=== PATIENT | female | born 1935 | race Caucasian/White ===

== ENCOUNTER 2017-12-11 08:38 | Inpatient (IN) | payer OTHER, BC ==
[2017-11-21 15:08] VITALS: BMI 28.0
--- NOTE | 2017-11-21 15:56 | PAT Medication Instructions ---
Service Date Nov 21, 2017. Current Home Medication List Aspirin (Aspirin Ec), 81 MG PO QAM Clorazepate Dipotassium (Tranxene-T), 7.5 MG PO TID Ibuprofen (Advil), 800 MG PO TID Levothyroxine Sodium (Levothyroxine Sodium), 1 TAB PO QAM Meclizine HCl (Meclizine HCl), 2 TAB PO TID PRN for VERTIGO Medication Instructions For Your Scheduled Surgery - Hold the following medications 5 days prior to surgery: Ibuprofen (Advil), 800 MG PO TID - Take the following medications the morning of surgery with a sip of water: Aspirin (Aspirin Ec), 81 MG PO QAM Levothyroxine Sodium (Levothyroxine Sodium), 1 TAB PO QAM Meclizine HCl (Meclizine HCl), 2 TAB PO TID PRN for VERTIGO (if needed) Clorazepate Dipotassium (Tranxene-T), 7.5 MG PO TID - Take the following medications as scheduled the night before surgery: Meclizine HCl (Meclizine HCl), 2 TAB PO TID PRN for VERTIGO (if needed) Clorazepate Dipotassium (Tranxene-T), 7.5 MG PO TID If you have any questions please call us at [phone] or [phone] or [phone]
[2017-11-21 16:34] LABS: BASO % 0.3 %; BASO ABS # 0.02 K/uL (0-0.2); EOS % 4.6 %; EOS ABS # 0.35 K/uL (0-0.5); HEMOGLOBIN 12.3 g/dL (12.0-16.0); IG# 0.02 K/uL (0.00-0.02); LYMPH % 21.5 %; LYMPH ABS # 1.63 K/uL (1.2-3.4); MEAN CELL VOLUME 95.1 fL (80-100); MEAN CORPUSCULAR HEMOGLOBIN 31.6 pg (25-34); MEAN CORPUSCULAR HGB CONC 33.2 g/dl (32-36); MEAN PLATELET VOLUME 9.2 fL (7.4-10.4); MONO % 7.9 %; NEUT % 65.4 %; NEUT ABS # 4.97 K/uL (1.4-6.5); PLATELET COUNT 241 K/uL (130-400); RED CELL DISTRIBUTION WIDTH CV 13.5 % (11.5-14.5); RED CELL DISTRIBUTION WIDTH SD 46.9 fL (36.4-46.3); WHITE BLOOD COUNT 7.59 K/uL (4.8-10.8)
[2017-11-21 17:08] LABS: CALCIUM 8.7 mg/dl (8.5-10.1); CREATININE 1.04 mg/dl (0.60-1.20); POTASSIUM 4.9 mmol/L (3.5-5.1)
--- NOTE | 2017-12-01 11:38 | HISTORY & PHYSICAL EXAMINATION ---
DATE OF ADMISSION: 12/11/2017 CHIEF COMPLAINT: Left hip pain. HISTORY OF PRESENT ILLNESS: Nalini is an 82-year-old female with a 1 year history of left hip pain. Patient rates her pain an 8/10. She has pain with her daily activities. She has limited standing and walking tolerance. Pain is worse with weightbearing. Patient has had injection. She cannot do a home exercise program due to her pain. She is currently in a walker and a wheelchair when she is out and about. She takes the Advil with little relief. She has failed conservative treatment and is scheduled for left hip replacement. PAST SURGICAL HISTORY: Brain shunt 2018, left TKA, hysterectomy, lumbar laminectomy and Anyi fundoplication. SOCIAL HISTORY: She denies alcohol or tobacco use. She lives in a single keith apartment at [facility]. She is and retired. FAMILY HISTORY: Negative for DVT. MEDICATIONS: Ibuprofen 800 mg t.i.d., alprazolam 0.25 mg t.i.d., aspirin 81 mg, Bactrim-DS, Cymbalta 20 mg, duloxetine 60 mg, meclizine 25 mg, Nexium 40 mg, pravastatin 40 mg, Synthroid 88 mcg, vitamin D3 2000 units. ALLERGIES: CODEINE. REVIEW OF SYSTEMS: See HPI. Ten other systems reviewed, all negative. PHYSICAL EXAMINATION: VITAL SIGNS: Height 5 feet 2 inches, weight 152 pounds, BMI 28. GENERAL: This is a well-developed, well-nourished female who is alert and oriented x3. Mood and affect are appropriate. HEENT: Normocephalic, atraumatic. Mucous membranes are moist and intact. NECK: Supple without lymphadenopathy. HEART: Regular rate and rhythm without murmurs, rubs or gallops. LUNGS: Clear to auscultation without wheezes or rhonchi. ABDOMEN: Soft and nontender. Bowel sounds are equal and active. EXTREMITIES: No ecchymosis, redness or warmth. She walks with an antalgic gait. She has a mild skin tear in the left groin fold. Range of motion is decreased and reproduces pain in the groin. She is neurovascularly intact with +5/5 strength. X-RAY EXAMINATION: AP and lateral views show joint space narrowing and osteophyte formation. IMPRESSION: Degenerative joint disease, left hip. PLAN: Patient will be admitted for a left total hip arthroplasty. We will plan on aspirin for DVT prophylaxis. Patient wants to go to [facility] upon discharge.
[2017-12-11] VITALS (7 sets, daily range): BP systolic 103–151; BP diastolic 67–86; PULSE 51–64; TEMP 35.4–36.5; O2SAT 94–100; Ht 160 cm; Wt 67.0 kg
[~2017-12-11] VITALS: Ht 160 cm; Wt 67.0 kg
--- NOTE | 2017-12-11 07:12 | History & Physical Bridge Note ---
H&P Re-Evaluation Bridge Note: I have examined the patient, reviewed the History & Physical and in the interval since the performance of the History & Physical I have noted the following changes of clinical significance: No changes noted
[~2017-12-11 08:38] MED LIST: ACETAMINOPHEN 500 MG TAB PO SCH; ASPI81TA28 PO; CEFAZOLIN 1000MG IV PUSH 7.5 ML IV SCH; CLOR7.5T14 PO; CeleBREX 200 MG CAP PO SCH; DEXAMETHASONE 4 MG TAB PO SCH; FAMOTIDINE 20 MG TAB PO SCH; GABAPENTIN 300 MG CAP PO SCH; IBUP-1050 PO; LACTATED RINGER'S 1000ML 1,000 ML IV SCH; LACTATED RINGER'S 1000ML 500 ML IV SCH; LEVO88TA3 PO; MECL1TAB40 PO; METOCLOPRAMIDE HCL 10 MG TAB PO SCH; ROPIVACAINE 5MG/ML 30 ML 150 MG, BUPIVACAINE 0.5% MPF INJ 30 ML, EpINEphrine HCL INJ 0.... INFIL SCH; ROPIVACAINE 5MG/ML 30 ML 150 MG, BUPIVACAINE 0.5% MPF INJ 30 ML, KETOROLAC TROMETHAMINE... INFIL SCH
[2017-12-11] MEDS ORDERED: BUPIVACAINE 0.5 % 5 MG/1 ML PF 10ML VIAL ONE (08:39)
[2017-12-11] MEDS ORDERED: FENTANYL CITRATE INJ 50 MCG/1 ML 2 ML VIAL ONE (10:03)
[2017-12-11] MEDS ORDERED: MIDAZOLAM HCL 1 MG/ML 2ML VIAL ONE ×2 (10:03)
[2017-12-11] MEDS ORDERED: LIDOCAINE HCL 2% 2 ML VIAL (20MG/ML) ONE (10:06)
[2017-12-11] MEDS ORDERED: PROPOFOL IV EMULSION 10 MG/ML 20 ML VIAL ONE (10:06)
[2017-12-11] MEDS ORDERED: ORTHO JOINT ANESTHETIC ONE (10:43)
[2017-12-11] MEDS ORDERED: POVIDONE-IODINE OP SOLN 30 ML BTL ONE (10:43)
[2017-12-11] MEDS ORDERED: BACITRACIN 50000 UNIT VIAL ONE (10:43)
[2017-12-11] MEDS ORDERED: LABETALOL HCL IV 5 MG/ML 20ML IV PRN (11:15)
[2017-12-11] MEDS ORDERED: ONDANSETRON INJ 2 MG/ML 2 ML VIAL IV PRN ×2 (11:15→12:45)
[2017-12-11] MEDS ORDERED: FENTANYL CITRATE INJ 50 MCG/1 ML 2 ML VIAL IV PRN (11:15)
[2017-12-11] MEDS ORDERED: PHENYLEPHRINE 100MCG/ML 5ML SYR IV PRN (11:15)
[2017-12-11] MEDS ORDERED: ATROPINE SULFATE 0.1 MG/ML 5ML SYR IV PRN (11:15)
[2017-12-11] MEDS ORDERED: EpHEDrine SULFATE INJ 50 MG/ML AMP IV PRN (11:15)
[2017-12-11] MEDS ORDERED: NALOXONE HCL 0.4 MG/1 ML VIAL/CARP IV PRN (11:15)
[2017-12-11] MEDS ORDERED: FLUMAZENIL 0.1 MG/1 ML 10 ML VIAL IV PRN (11:15)
[2017-12-11] MEDS ORDERED: MEPERIDINE HCL 25 MG/ML CARP IV PRN (11:15)
--- NOTE | 2017-12-11 12:03 | [facility] Post Operative Brief Note ---
Immediate Operative Summary Operative Date December 11, 2017. Pre-Operative Diagnosis DEGENERATIVE JOINT DISEASE Post-Operative Diagnosis SAME PREOP Procedure(s) Performed [facility] Surgeon DR. Armani CHINO Gambling Cashier Surgeon(s) Nayely CHING PAC Estimated Blood Loss 100cc Findings Consistent with Post-Op Diagnosis Specimens femoral head Anesthesia Type MAC Spinal Regional Complication(s) none Disposition Accompanied Pt To Recover: no Disposition: Recovery Room / PACU Overlapping Procedure I was present for: the critical portions of procedure. I was immediately available: during the entire case
[2017-12-11] MEDS ORDERED: PHENYLEPHRINE HCL INJ 10 MG/ML VIAL ONE (12:21)
[2017-12-11] MEDS ORDERED: PHENYLEPHRINE 100MCG/ML 5ML SYR ONE (12:21)
[2017-12-11] MEDS ORDERED: ZOLPIDEM TARTRATE 5 MG TAB PO PRN (12:45)
[2017-12-11] MEDS ORDERED: TRAMADOL HCL 50 MG TAB PO PRN (12:45)
[2017-12-11] MEDS ORDERED: METOCLOPRAMIDE HCL INJ 5 MG/ML 2 ML VIAL IV PRN (12:45)
[2017-12-11] MEDS ORDERED: MAGNESIUM HYDROXIDE SUSP 30 ML UDC PO PRN (12:45)
[2017-12-11] MEDS ORDERED: ALUMINUM/MAGNESIUM/SIMETH (MAALOX MAX) 30 ML UDC PO PRN (12:45)
--- NOTE | 2017-12-11 13:01 | OPERATIVE REPORT ---
DATE OF OPERATION: 12/11/2017 PREOPERATIVE DIAGNOSIS: Osteoarthritis, left hip. POSTOPERATIVE DIAGNOSIS: Osteoarthritis, left hip. PROCEDURE: Left Chris total hip arthroplasty. SURGEON: Sylvain Jiang MD ENGINEERING MANAGER: Sandor Gonzalez PA-C. ANESTHESIA: Spinal. COMPLICATIONS: None. IMPLANTS USED: Acetabular reamer used 54, acetabular shell 54, femoral stem #4, and femoral head -5 x 36 mm ceramic. DISPOSITION: Recovery room, stable. OPERATION AND FINDINGS: DESCRIPTION OF PROCEDURE: Following induction of adequate spinal anesthesia, the patient was placed in right lateral decubitus position and left Kadie-Langenbeck incision was made. Subcutaneous tissue was sharply dissected. Electrocautery used for hemostasis. The fascia was incised throughout the length of the wound and a jessica scissor placed beneath the short external rotators. The pyriformis was tagged with #1 Vicryl. The short external rotators were divided from the posterior aspect of the femur using electrocautery. These were swept posteriorly. A T-capsulotomy incision was made and the hip was dislocated using a combination of flexion, adduction, and internal rotation. Exposure of the femoral neck with old-style Hohmann and a blunt Hohmann was carried out and a femoral rasp was utilized as a guide for making the appropriate level femoral neck cut. This bone fragment was removed and reserved on the back table. Next, attention was turned to the acetabulum where bone hook was used to retract the femur while the offset retractors were placed anterior and posteriorly. A double-angled Hohmann was placed in superior and anterior position exposing the acetabulum nicely. Acetabular labrum as well as posterior capsule elements were removed using a long knife and a long pickup. Fovea centralis was cleared of all soft tissue. Sequential reamings were carried up to a 54 and decision was made to proceed with impaction of a 54 trabecular metal cup. This was impacted and held using a single 35 mm bone screw. The acetabular liner was placed with 15 of elevated posterior wall in the superior and posterior position. Next, attention was turned to the femoral portion of the case where a Bovie and pickup was used to further clear short external rotators from their insertion on the femur. Box osteotome was used to gain access to the femoral canal and the T-handled rasp and a rattail rasp were used to further open and lateral the canal. Sequentially raspings were carried up to a 4 which gave good fit and fill of the proximal femur. A trial reduction was carried out and a 132 degree femoral neck component was chosen as the size to be used. A 5 x 36 mm femoral head was impacted into position, +0 head was utilized. The trial reduction was stable in all degrees of rotation with no [id number] impingement. The hip was dislocated. The trial components were removed and the final femoral stem, neck, and femoral head combination were assembled on the back table and impacted into position. Hip was relocated. Range of motion checked once again successful and the wound was irrigated. The pyriformis repaired to the greater trochanter using #1 Vicryl [id number] suture. A Hemovac drain was placed and the fascia was closed using #1 Vicryl, subcutaneous tissue was closed using 0 Dexon, and skin was closed with jacinta. Sterile dressing of Adaptic, 4 x 4's, ABDs, and foam tape was applied. The patient tolerated the procedure well. Due to the complex nature of the procedure, the entire surgery was performed with the operational assistance of Sandor Gonzalez PA-C. The power plant assistant, under direct supervision, was involved in the actual performance of all aspects of the surgical procedure including hemostasis, tissue retraction and incision, instrument management, patient positioning, and wound closure. I attest to the content of the Intraoperative Record and any orders documented therein. Any exception s are noted below.
--- NOTE | 2017-12-11 13:21 | DIAGNOSTIC IMAGING REPORT ---
AP PELVIS AND LEFT HIP 2 VIEWS CLINICAL HISTORY: Postop left hip arthroplasty COMPARISON STUDY: No previous studies for comparison. FINDINGS: There are postsurgical changes of a total left hip arthroplasty. Acetabular femoral components appear well seated. There is no dislocation. There are overlying surgical drains. There is air in soft tissues consistent with the history of recent surgery. A catheter projects over the pelvis. IMPRESSION: Postsurgical changes of a total left hip arthroplasty. Electronically signed by: Logan Mckenzie M.D. 12/11/2017 1:19 PM Dictated Date/Time: 12/11/2017 1:19 PM
[2017-12-11] MEDS: ACETAMINOPHEN 500 MG TAB PO SCH ×2 (16:40→23:32)
[2017-12-11] MEDS: D5W AND 1/2NSS + 20MEQ KCL 1,000 ML IV SCH (16:40)
--- NOTE | 2017-12-11 16:53 | Anesthesiology Progress Note ---
Anesthesia Post Op Note Date & Time December 11, 2017 at 16:52 Vital Signs Pain Intensity: 0.0 Vital Signs Past 12 Hours Date Time Temp Pulse Resp B/P (MAP) Pulse Ox O2 Delivery O2 Flow Rate FiO2 12/11/17 16:44 35.8 55 18 133/78 (96) 99 Nasal Cannula 2.0 12/11/17 16:15 36.3 59 18 103/67 (79) 98 Nasal Cannula 2.0 12/11/17 15:45 36.5 56 16 114/72 (86) 98 Oxymask 2.0 12/11/17 15:45 98 Oxymask 2.0 12/11/17 15:45 98 Oxymask 2.0 12/11/17 15:30 56 16 129/63 100 Oxymask 2 12/11/17 15:20 53 16 110/64 100 Oxymask 2 12/11/17 15:10 36.0 56 16 113/66 100 Oxymask 2 12/11/17 15:00 54 16 145/62 100 Oxymask 2 12/11/17 14:50 61 16 138/63 100 Oxymask 2 12/11/17 14:40 60 16 123/65 95 Room Air 12/11/17 14:30 58 16 107/61 99 Room Air 12/11/17 14:20 60 16 113/57 100 Oxymask 3 12/11/17 14:10 60 16 134/74 100 Oxymask 3 12/11/17 14:00 62 16 145/70 100 Oxymask 3 12/11/17 13:50 56 16 108/56 100 Oxymask 3 12/11/17 13:40 59 16 115/69 100 Oxymask 3 12/11/17 13:30 62 16 121/64 100 Oxymask 3 12/11/17 13:20 55 17 122/61 98 Oxymask 3 12/11/17 13:10 57 16 122/61 98 Oxymask 3 12/11/17 13:00 58 16 107/55 100 Oxymask 3 12/11/17 12:50 58 16 113/54 100 Oxymask 3 12/11/17 12:40 57 16 104/50 100 Oxymask 5 12/11/17 12:31 36.0 58 12 103/48 98 Oxymask 5 12/11/17 09:16 36.4 62 18 151/86 94 Room Air Notes Mental Status: alert / awake / arousable, participated in evaluation Pt Amnestic to Procedure: Yes Nausea / Vomiting: adequately controlled Pain: adequately controlled Airway Patency, RR, SpO2: stable & adequate BP & HR: stable & adequate Hydration State: stable & adequate Neuraxial Anesthesia: was administered, sensory block is resolving Anesthetic Complications: no major complications apparent Patient was somnolent postoperatively and required longer than usual PACU stay. She was arousable and able to move b/l lower and upper extremities (lower extremities after SAB resolved). She was oriented to person and place and she followed commands. ok for transfer to the floor.
[2017-12-11] MEDS: FERROUS GLUCONATE 324 MG TAB PO SCH (17:31)
[2017-12-11] MEDS: KETOROLAC TROMETHAMINE 15 MG/ML VIAL IV. SCH ×2 (17:32→23:34)
[2017-12-11] MEDS: CEFAZOLIN IV 1,000 MG in SYRINGE 0 ML IV SCH (20:22)
[2017-12-11] MEDS: DOCUSATE SODIUM 100 MG CAP PO SCH (20:40)
[2017-12-11] MEDS: CLORAZEPATE DIPOTASSIUM 3.75 MG TAB PO SCH (20:40)
[2017-12-11] MEDS: ASPIRIN 81 MG ECTAB PO SCH (20:41)
[2017-12-12] MEDS: D5W AND 1/2NSS + 20MEQ KCL 1,000 ML IV SCH (02:28)
[2017-12-12 03:18] VITALS: BP 108/64; PULSE 54; TEMP 36.3; O2SAT 95
[2017-12-12] MEDS: CEFAZOLIN IV 1,000 MG in SYRINGE 0 ML IV SCH (04:27)
[2017-12-12] MEDS: LEVOTHYROXINE 88 MCG TAB PO SCH (06:05)
[2017-12-12] MEDS: KETOROLAC TROMETHAMINE 15 MG/ML VIAL IV. SCH ×2 (06:07→12:26)
[2017-12-12 06:28] LABS: BASO % 0.1 %; BASO ABS # 0.01 K/uL (0-0.2); HEMATOCRIT 30.7 % (37-47); HEMOGLOBIN 10.3 g/dL (12.0-16.0); IG# 0.04 K/uL (0.00-0.02); LYMPH % 6.2 %; LYMPH ABS # 0.87 K/uL (1.2-3.4); MEAN CELL VOLUME 91.9 fL (80-100); MEAN CORPUSCULAR HEMOGLOBIN 30.8 pg (25-34); MEAN CORPUSCULAR HGB CONC 33.6 g/dl (32-36); MEAN PLATELET VOLUME 9.5 fL (7.4-10.4); MONO % 9.7 %; MONO ABS # 1.35 K/uL (0.11-0.59); NEUT % 83.7 %; NEUT ABS # 11.71 K/uL (1.4-6.5); PLATELET COUNT 237 K/uL (130-400); RED CELL DISTRIBUTION WIDTH SD 43.7 fL (36.4-46.3); WHITE BLOOD COUNT 13.98 K/uL (4.8-10.8)
[2017-12-12 07:09] LABS: CALCIUM 8.2 mg/dl (8.5-10.1); CREATININE 1.03 mg/dl (0.60-1.20); POTASSIUM 4.4 mmol/L (3.5-5.1)
[2017-12-12] MEDS ORDERED: DEXAMETHASONE INJ 10 MG in SYRINGE 0 ML IV SCH (07:30)
[2017-12-12 07:33] VITALS: BP 107/67; PULSE 53; TEMP 36.3; O2SAT 95
--- NOTE | 2017-12-12 07:44 | Anesthesiology Progress Note ---
Anesthesia Post Op Note Date & Time December 12, 2017 at 07:44 Vital Signs Pain Intensity: 0.0 Vital Signs Past 12 Hours Date Time Temp Pulse Resp B/P (MAP) Pulse Ox O2 Delivery O2 Flow Rate FiO2 12/12/17 07:33 36.3 53 16 107/67 (80) 95 Room Air 12/12/17 03:18 36.3 54 16 108/64 (79) 95 Room Air 12/11/17 23:50 Room Air 12/11/17 22:50 36.3 51 18 126/67 (86) 95 Room Air Notes Mental Status: alert / awake / arousable, participated in evaluation Pt Amnestic to Procedure: Yes Nausea / Vomiting: adequately controlled Pain: adequately controlled Airway Patency, RR, SpO2: stable & adequate BP & HR: stable & adequate Hydration State: stable & adequate Neuraxial Anesthesia: sensory block resolved Anesthetic Complications: no major complications apparent
--- NOTE | 2017-12-12 07:47 | Orthopedic Progress Note ---
Orthopedic Progress Note Date of Service December 12, 2017. Subjective Post OP Day: 1 Reports: feeling well Additional Notes: Pt states she woke overnight and was confused, states she's better this AM, appears alert and oriented, speaking well Objective N/V intact, dressing C/D/I (Hemovac in place), toes mobile Date Time Temp Pulse Resp B/P (MAP) Pulse Ox O2 Delivery O2 Flow Rate FiO2 12/12/17 07:33 36.3 53 16 107/67 (80) 95 Room Air 12/12/17 03:18 36.3 54 16 108/64 (79) 95 Room Air 12/11/17 23:50 Room Air 12/11/17 22:50 36.3 51 18 126/67 (86) 95 Room Air 12/11/17 18:51 36.2 60 18 128/78 (95) 100 Nasal Cannula 2.0 12/11/17 17:45 35.4 64 16 122/72 (89) 100 Nasal Cannula 2.0 12/11/17 16:44 35.8 55 18 133/78 (96) 99 Nasal Cannula 2.0 12/11/17 16:15 36.3 59 18 103/67 (79) 98 Nasal Cannula 2.0 12/11/17 15:45 36.5 56 16 114/72 (86) 98 Oxymask 2.0 12/11/17 15:45 98 Oxymask 2.0 12/11/17 15:45 98 Oxymask 2.0 12/11/17 15:30 56 16 129/63 100 Oxymask 2 12/11/17 15:20 53 16 110/64 100 Oxymask 2 12/11/17 15:10 36.0 56 16 113/66 100 Oxymask 2 12/11/17 15:00 54 16 145/62 100 Oxymask 2 12/11/17 14:50 61 16 138/63 100 Oxymask 2 12/11/17 14:40 60 16 123/65 95 Room Air 12/11/17 14:30 58 16 107/61 99 Room Air 12/11/17 14:20 60 16 113/57 100 Oxymask 3 12/11/17 14:10 60 16 134/74 100 Oxymask 3 12/11/17 14:00 62 16 145/70 100 Oxymask 3 12/11/17 13:50 56 16 108/56 100 Oxymask 3 12/11/17 13:40 59 16 115/69 100 Oxymask 3 12/11/17 13:30 62 16 121/64 100 Oxymask 3 12/11/17 13:20 55 17 122/61 98 Oxymask 3 12/11/17 13:10 57 16 122/61 98 Oxymask 3 12/11/17 13:00 58 16 107/55 100 Oxymask 3 12/11/17 12:50 58 16 113/54 100 Oxymask 3 12/11/17 12:40 57 16 104/50 100 Oxymask 5 12/11/17 12:31 36.0 58 12 103/48 98 Oxymask 5 12/11/17 09:16 36.4 62 18 151/86 94 Room Air Laboratory Results 24 Hours: Test 12/12/17 05:39 White Blood Count 13.98 K/uL Red Blood Count 3.34 M/uL Hemoglobin 10.3 g/dL Hematocrit 30.7 % Mean Corpuscular Volume 91.9 fL Mean Corpuscular Hemoglobin 30.8 pg Mean Corpuscular Hemoglobin Concent 33.6 g/dl Platelet Count 237 K/uL Mean Platelet Volume 9.5 fL Neutrophils (%) (Auto) 83.7 % Lymphocytes (%) (Auto) 6.2 % Monocytes (%) (Auto) 9.7 % Eosinophils (%) (Auto) 0.0 % Basophils (%) (Auto) 0.1 % Neutrophils # (Auto) 11.71 K/uL Lymphocytes # (Auto) 0.87 K/uL Monocytes # (Auto) 1.35 K/uL Eosinophils # (Auto) 0.00 K/uL Basophils # (Auto) 0.01 K/uL Assessment & Plan Assessment: 82 yo female stable POD #1 s/p left NISHANT Plan: 1. Med management 2. DVT prophylaxis- ASA, SCDs 3. PT/OT 4. D/C planning- pt interested in [facility]
--- NOTE | 2017-12-12 07:48 | Discharge Instructions ---
Discharge Instructions Date of Service December 12, 2017. Admission Reason for Admission: Left Hip Osteoarthritis Discharge Discharge Diagnosis / Problem: Left hip arthritis Discharge Goals Goal(s): Decrease discomfort, Improve function Activity Recommendations Activity Limitations: as noted below Weightbearing Status: Left weightbearing (as tolerated) . Instructions / Follow-Up Instructions / Follow-Up ACTIVITY RECOMMENDATIONS: SELF CARE INSTRUCTIONS AFTER TOTAL HIP REPLACEMENT Until the incision and soft tissues around your hip have healed, there is a possibility that the hip prosthesis could dislocate. A. Observe the following precautions to prevent dislocation: 1. Don't bend your hip greater than 90 degrees. 2. Avoid crossing your legs or ankles while standing or lying. 3. Sit with your feet placed 6 inches apart. 4. When sitting, keep your knees below your hips. Sit on a firm surface, avoid deep, soft chairs and couches. Use an elevated toilet seat in the bathroom. 5. Don't bend over at the waist. Use a long handled shoehorn and a sock aid to help you put on your shoes and socks. A doll repairer can help you mixing picker tender objects that are too high or too low to reach. 6. Keep car riding to a minimum for at least one month after surgery. B. Your balance may be shaky for a while. Use crutches or a walker until directed by your doctor. C. Use hand rails when walking on stairs. D. Wear low heeled shoes with non-slip soles. E. Be sure that your floors are free of things that could trip you - throw rugs , electrical cords, small objects. Avoid wet and waxed floors, especially with crutches and canes. F. Try to walk several times a day with rest periods between. G. Continue with all the exercises taught to you in the hospital. Again, make walking a part of your daily routine. SPECIAL CARE INSTRUCTIONS: VERY IMPORTANT TO READ AND REVIEW A. You may still be at risk for phlebitis and blood clots. 1. Wear surgical stockings (AVIVA hose) for 2 weeks after surgery to improve circulation and reduce swelling. 2. Take Aspirin 81mg twice daily for 4 weeks or as directed by your doctor. This is your blood thinner. 3. High risk patients may be prescribed a stronger blood thinner if necessary. 4. If you are on Coumadin normally, your family doctor/fastener technologist should monitor your blood work. Expect a phone call the day of or the day after bloodwork is drawn to adjust your dosage. B. You must take antibiotics before having dental work, bladder, bowel and other surgery. Your doctor will provide you with a permanent card to carry describing precautions. C. Call [facility] if you have a fever, redness or swelling around the incision, cloudy drainage from incision, or sudden increase in pain in your hip, not relieved by your regular pain medication. D. Please call the office at if you have any concerns or questions about your operation or recovery. * YOU MAY SHOWER, NO TUB BATHS UNTIL CLEARED BY YOUR DOCTOR. * WEAR AVIVA HOSE 20 HOURS PER DAY FOR 2 WEEKS. * YOU SHOULD USE A WALKER OR CRUTCHES FOR 2-4 WEEKS. THIS WILL HELP PREVENT STRAIN ON YOUR HIP MUSCLE AND ALLOW IT TO HEAL PROPERLY. YOU MAY WEAN TO A CANE TOLERATED. * MOST PATIENTS WILL HAVE HOME NURSING FOR THERAPY. IF YOU DECIDE TO DO OUTPATIENT PHYSICAL THERAPY, PLEASE SCHEDULE THIS 3 TIMES PER WEEK. Silverlon- This is a large adhesive bandage that contains silver ions. This helps your incision heal by fighting off bacteria and protecting it from the outside environment. You are permitted to shower with this dressing. This will remain on your incision for 7 days and then should be removed. Some visible blood or drainage through the dressing window is normal. If there is significant drainage or leaking noted before the 7 days notify your doctor's office immediately. Once removed, keep incision clean and dry. If there is any drainage or redness noted, please call your surgeon. Zip Skin Closure You have a Zipline Closure System. As noted below, this keeps your incision closed. Change the dressing daily. Keep the wound covered with a dressing as it has the potential to snag on your clothing. The Zipline will remain on for a total of 2 weeks. Do not remove it! You will be given instructions by nursing staff at the time of discharge to care for your Zip Closure System. This devices uses plastic straps to keep your incision closed and protected throughout your recovery. If you have any questions please refer to these instructions first. FOLLOW UP VISIT: If appointment is not already scheduled: Please call [facility] to make a follow-up appointment for 2 weeks after your surgery at . Current Hospital Diet Patient's current hospital diet: Regular Diet Discharge Diet Recommended Diet: Regular Diet Procedures Procedures Performed: [facility] Pending Studies Studies pending at discharge: no Medical Emergencies . Who to Call and When: Medical Emergencies: If at any time you feel your situation is an emergency, please call 911 immediately. . Non-Emergent Contact Non-Emergency issues call your: Surgeon Call Non-Emergent contact if: temperature is above 101.5, your pain is not controlled, wound has increased drainage, wound has increased redness . "Provider Documentation" section prepared by Sandor Gonzalez PA-C. . [place] Drug Monitoring Program Search Results: patient reviewed within database, no issues identified
[2017-12-12] MEDS: ACETAMINOPHEN 500 MG TAB PO SCH ×3 (08:15→23:52)
[2017-12-12] MEDS: FERROUS GLUCONATE 324 MG TAB PO SCH ×3 (08:25→17:54)
[2017-12-12] MEDS: MULTIVITAMIN TAB PO SCH (08:26)
[2017-12-12] MEDS: PANTOprazole SOD 40 MG TAB PO SCH (08:26)
[2017-12-12] MEDS: DOCUSATE SODIUM 100 MG CAP PO SCH ×2 (08:26→21:54)
[2017-12-12] MEDS: ASPIRIN 81 MG ECTAB PO SCH ×2 (08:26→21:54)
[2017-12-12] MEDS: CLORAZEPATE DIPOTASSIUM 3.75 MG TAB PO SCH ×3 (08:30→23:50)
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
[2017-12-12 10:54] VITALS: BP 131/68; PULSE 50; TEMP 36.2; O2SAT 98
[2017-12-12 16:15] VITALS: BP 118/70; PULSE 57; TEMP 36.3; O2SAT 96
[2017-12-12] MEDS ORDERED: HALOPERIDOL 1 MG TAB PO PRN (20:00)
[2017-12-12] MEDS: HALOPERIDOL 1 MG TAB PO PRN (21:54)
[2017-12-12] MEDS: CeleBREX 200 MG CAP PO SCH (21:55)
[2017-12-13] MEDS: HALOPERIDOL LACTATE 5 MG/ML 1 ML VIAL IM PRN ×2 (01:01→03:24)
[2017-12-13 02:35] VITALS: BP 151/68; PULSE 67; TEMP 36.5; O2SAT 99
[2017-12-13] MEDS: LEVOTHYROXINE 88 MCG TAB PO SCH (05:15)
[2017-12-13 07:13] VITALS: BP 156/70
--- NOTE | 2017-12-13 08:36 | Hospitalist Progress Note ---
Hospitalist Progress Note Date of Service December 13, 2017. (Yomaira Quigley PA-C) Subjective Pt evaluation today including: conversation w/ patient, conversation w/ family , physical exam, chart review, lab review, review of studies Pain: Minimal L hip PO Intake: Fair Voiding: no voiding problems The patient was seen and examined this morning. Her daughter Aylin dao is present at bedside and notes her mother is still confused this morning; for example the patient thinks she was a big green party this morning. Pt is also unable to recall last nights events, but knows that she did not sleep. Her daughter states that any time the patient is under anesthesia, it has taken upwards of 5 days to return to her baseline. She typically is not confused at all and functions well at home helping her . Pt is able to ambulate at baseline with walker, and proceeded with this elective hip surgery as she saw her do well with a hip surgery. They live at home together, and have home health nursing in 2x per week due to her FOOD TASTER shunt. Nursing states pt confusion is improved with the daughter present at bedside. PT/OT working w/ pt. Pt has a tendency to disregard hip precautions. Constitutional: + fatigue, No fever, No chills Respiratory: No cough, No shortness of breath Cardiovascular: No chest pain, No palpitations Abdomen: No pain, No nausea, No vomiting, No diarrhea, No constipation Musculoskeletal: No swelling, No calf pain Neurologic: + see HPI, No weakness Psychiatric: + see HPI (Yomaira Quigley PA-C) Objective Vital Signs Date Time Temp Pulse Resp B/P (MAP) Pulse Ox O2 Delivery O2 Flow Rate FiO2 12/13/17 07:13 16 156/70 (98) 12/13/17 02:35 36.5 67 16 151/68 (95) 99 Room Air 12/12/17 23:15 Room Air 12/12/17 16:27 Room Air 12/12/17 16:15 36.3 57 16 118/70 (86) 96 Room Air 12/12/17 10:54 36.2 50 16 131/68 (89) 98 Room Air (Yomaira Qiugley PA-C) Physical Exam General Appearance: WD/WN, no apparent distress Eyes: PERRL, EOMI ENT: hearing grossly normal, pharynx normal Neck: supple, no JVD Respiratory/Chest: no respiratory distress, no accessory muscle use, + pertinent finding (Faint crackles in the left base) Cardiovascular: regular rate, rhythm, + systolic murmur (III/ RUSB) Abdomen: normal bowel sounds, non tender, soft Extremities: non-tender, no pedal edema, no calf tenderness, + pertinent finding (L hip dressing c/d/i.) Neurologic/Psychiatric: alert, normal mood/affect, oriented x 3 Skin: normal color, warm/dry (Yomaira Quigley, LAM) Laboratory Results Last 24 Hours Test 12/13/17 04:44 (Yomaira Quigley PA-C) Assessment and Plan Ms. Keith is an 82 year old woman here for elective left NISHANT 12/[address] Jiang. Increased confusion/agitation Overnight the patient developed confusion and required 2 separate doses of Haldol 0.5 mg IM injections - Will order seroquel 25 mg HS tonight to help with confusion/sleep - pts overnight actions were specifically self mutilating with digging fingernails into self to hold nursing staff accountable, as well as increased combativeness. See nursing notes. - Continue haldol prn for agitation - Behavior was confirmed with daughter via physician phone call last evening - reorient as possible - improved behavior with family present Left NISHANT 12/11 - monitor for acute hemorrhage, cbc am, blood drainage from hemovac - Bowel regimen, DVT prophylaxis, pain control, PT/OT per primary team History of multiple falls, brain shunt - maintain fall precautions - continue clorazepate Hx TIA, HLD - continue home atorvastatin 20 mg, ASA GERD - continue protonix Hypothyroidism - continue levothyroxine Medicine will follow along due to increased confusion as above. (Yomaira Quigley PA-C) Attending Attestation - Pt seen/examined, chart reviewed, care plan d/w CHRISSY Quigley. I agree w/ the garcia components of her documentation except - patient has baseline memory disturbance per . Pt w/ ongoing confusion; she could not provide any meaningful history or ROS. and daughter at bedside. Eating/drinking poorly. Refusing meds intermittently. VSS, no fever gen - appears dehydrated, confused, but not combative w/ me mouth - MM dry neck - no JVD heart - 1-2/6 IESHA LSB, RRR lungs - CTA b/l abd - soft, NT ext - left hip w/ mild edema skin - dressings intact left hip A/P: 1. encephalopathy - likely multiple causes including anesthesia, hospital psychosis, pain meds, dehydration, constipation. Cannot rule out UTI, etc. Agree w/ seroquel HS. Stimulate during the day to remain awake and therefore sleep better at night. Avoid benzos (ativan, etc). Check u/a and urine cx. Treat constipation. 2. constipation - dulcolax suppos; bowel regimen by mouth if she will take such. 3. CKD stage 3 - BMP in am for stability. 4. NPH s/p FOOD TASTER shunt 5. underlying mild cognitive impairment vs dementia 6. FEN - restart IVF due to poor oral intake; BMP am. Paul Robles MD (Paul Robles MD)
[2017-12-13] MEDS: DOCUSATE SODIUM 100 MG CAP PO SCH ×3 (09:00→21:37)
--- NOTE | 2017-12-13 09:12 | Orthopedic Progress Note ---
Orthopedic Progress Note Date of Service December 13, 2017. Subjective Post OP Day: 2 Additional Notes: Pt with increased confusion overnight per nurse and daughter, somewhat better this AM, concern for noncompliance with NISHANT precautions Objective calves soft nontender, N/V intact, dressing C/D/I, toes mobile Date Time Temp Pulse Resp B/P (MAP) Pulse Ox O2 Delivery O2 Flow Rate FiO2 12/13/17 07:13 16 156/70 (98) 12/13/17 02:35 36.5 67 16 151/68 (95) 99 Room Air 12/12/17 23:15 Room Air 12/12/17 16:27 Room Air 12/12/17 16:15 36.3 57 16 118/70 (86) 96 Room Air 12/12/17 10:54 36.2 50 16 131/68 (89) 98 Room Air Laboratory Results 24 Hours: Test 12/13/17 09:04 Assessment & Plan Assessment: 82 yo female stable POD #2 s/p left NISHANT, increased confusion Plan: 1. Med management 2. DVT prophylaxis- ASA, SCDs 3. PT/OT 4. D/C planning- referral made to [facility]
[2017-12-13 09:23] LABS: BASO % 0.1 %; BASO ABS # 0.01 K/uL (0-0.2); EOS % 0.4 %; EOS ABS # 0.05 K/uL (0-0.5); HEMATOCRIT 28.5 % (37-47); HEMOGLOBIN 9.9 g/dL (12.0-16.0); IG# 0.03 K/uL (0.00-0.02); LYMPH % 9.6 %; LYMPH ABS # 1.34 K/uL (1.2-3.4); MEAN CELL VOLUME 91.1 fL (80-100); MEAN CORPUSCULAR HEMOGLOBIN 31.6 pg (25-34); MEAN CORPUSCULAR HGB CONC 34.7 g/dl (32-36); MEAN PLATELET VOLUME 9.2 fL (7.4-10.4); MONO % 11.5 %; NEUT % 78.2 %; NEUT ABS # 10.91 K/uL (1.4-6.5); PLATELET COUNT 254 K/uL (130-400); RED CELL DISTRIBUTION WIDTH CV 13.2 % (11.5-14.5); RED CELL DISTRIBUTION WIDTH SD 43.8 fL (36.4-46.3); WHITE BLOOD COUNT 13.94 K/uL (4.8-10.8)
[2017-12-13 09:44] LABS: CALCIUM 8.3 mg/dl (8.5-10.1); CREATININE 1.13 mg/dl (0.60-1.20); POTASSIUM 3.7 mmol/L (3.5-5.1)
[2017-12-13] MEDS: ACETAMINOPHEN 500 MG TAB PO SCH ×3 (09:45→23:20)
[2017-12-13] MEDS: CeleBREX 200 MG CAP PO SCH ×3 (09:46→21:37)
[2017-12-13] MEDS: ASPIRIN 81 MG ECTAB PO SCH ×3 (09:46→21:37)
[2017-12-13] MEDS: CLORAZEPATE DIPOTASSIUM 3.75 MG TAB PO SCH ×4 (09:47→22:38)
[2017-12-13] MEDS: FERROUS GLUCONATE 324 MG TAB PO SCH ×3 (09:48→17:45)
[2017-12-13] MEDS: PANTOprazole SOD 40 MG TAB PO SCH (09:52)
[2017-12-13] MEDS: MULTIVITAMIN TAB PO SCH (09:52)
[2017-12-13] MEDS: ATORVASTATIN 20 MG TAB PO SCH (09:53)
[2017-12-13] MEDS: HALOPERIDOL 1 MG TAB PO PRN (13:06)
[2017-12-13] MEDS: D5NSS + 20MEQ KCL 1,000 ML IV SCH (14:28)
[2017-12-13 14:52] VITALS: BP 110/65; PULSE 70; TEMP 34.9; O2SAT 97
[2017-12-13 14:55] VITALS: TEMP 35.9
[2017-12-13] MEDS: QUETIAPINE FUMARATE 25 MG TAB PO SCH ×2 (19:56→22:38)
[2017-12-13 20:25] VITALS: BP 124/82; PULSE 62; TEMP 36.4; O2SAT 98
--- NOTE | 2017-12-13 20:55 | Progress Note ---
Progress Note Date of Service December 13, 2017. Progress Note Called by nurse about Patient having decreased strength on the right side on most recent assessment. Evaluated patient at bedside at 2039. Patient does have reduced 3/5 strength in RUE and RLE with reduced coordination when compared to the left side. The patient was give a number of sedatives over the last 24 hours including Seroquel and Haldol although due to the patients past history of shunt for hydrocephalus and recent surgery I ordered a CT head to r/o acute stroke. Appears that the patient is acutely sedated at this time with orientation to person only. No cranial nerve abnormalities on exam and PERRL. Will continue to monitor.
--- NOTE | 2017-12-13 21:59 | DIAGNOSTIC IMAGING REPORT ---
HEAD WITHOUT CONTRAST (CT) CLINICAL HISTORY: 82 years-old Female with Right sided weakness, history of shunt for hydrocephalus. Acute right-sided weakness. TECHNIQUE: Multiple axial CT images of the head were obtained without contrast. A dose lowering technique was utilized adhering to the principles of ALARA. CT DOSE: 614.27 mGy.cm COMPARISON: None. FINDINGS: No acute intracranial hemorrhage, midline shift, intracranial mass, hydrocephalus, territorial ischemia or abnormal extra-axial collection. Right-sided ventriculostomy shunt catheter is noted with distal tip adjacent to the septum pellucidum within the frontal horn right lateral ventricle. Mild dilation of the lateral ventricles measure up to 3.8 cm transversely. No significant dilation of the third or fourth ventricles. There is mild to moderate atrophy with chronic microvascular ischemic changes. The calvarium is intact. The paranasal sinuses, mastoid air cells, and middle ear cavities are clear. At least moderate degenerative changes about the bilateral temporal mandibular joints with periarticular ossifications. IMPRESSION: 1. No acute intracranial abnormality. 2. Right-sided ventriculostomy shunt catheter terminates within the frontal horn right lateral ventricle. Mild dilation of the lateral ventricles is noted. Correlate with prior comparison imaging to assess for chronicity. 3. Atrophy with chronic microvascular ischemic changes. The above report was generated using voice recognition software. It may contain grammatical, syntax or spelling errors. Electronically signed by: Parish Martinez M.D. 12/13/2017 9:58 PM Dictated Date/Time: 12/13/2017 9:53 PM
[2017-12-13 22:50] VITALS: BP 123/72; PULSE 64; TEMP 36.3; O2SAT 96
[2017-12-14] MEDS: D5NSS + 20MEQ KCL 1,000 ML IV SCH ×2 (02:29→14:36)
[2017-12-14] MEDS: LEVOTHYROXINE 88 MCG TAB PO SCH (05:45)
[2017-12-14 05:58] LABS: HEMATOCRIT 28.7 % (37-47); HEMOGLOBIN 9.5 g/dL (12.0-16.0); MEAN CELL VOLUME 94.1 fL (80-100); MEAN CORPUSCULAR HEMOGLOBIN 31.1 pg (25-34); MEAN CORPUSCULAR HGB CONC 33.1 g/dl (32-36); MEAN PLATELET VOLUME 9.4 fL (7.4-10.4); PLATELET COUNT 231 K/uL (130-400); RED CELL DISTRIBUTION WIDTH CV 13.4 % (11.5-14.5); RED CELL DISTRIBUTION WIDTH SD 46.3 fL (36.4-46.3); WHITE BLOOD COUNT 7.79 K/uL (4.8-10.8)
[2017-12-14 06:09] LABS: CALCIUM 8.1 mg/dl (8.5-10.1); CREATININE 1.07 mg/dl (0.60-1.20); POTASSIUM 4.2 mmol/L (3.5-5.1)
[2017-12-14 07:52] VITALS: BP 144/79; PULSE 61; TEMP 36.9; O2SAT 92
[2017-12-14] MEDS: ACETAMINOPHEN 500 MG TAB PO SCH ×3 (08:00→23:36)
--- NOTE | 2017-12-14 08:04 | Orthopedic Progress Note ---
Orthopedic Progress Note Date of Service December 14, 2017. Subjective Post OP Day: 3 Additional Notes: Per NS, pt less confused, no longer requires 1 on 1, pt sleeping this AM Objective dressing C/D/I Date Time Temp Pulse Resp B/P (MAP) Pulse Ox O2 Delivery O2 Flow Rate FiO2 12/14/17 07:52 36.9 61 16 144/79 (100) 92 12/13/17 23:15 Room Air 12/13/17 22:50 36.3 64 18 123/72 (89) 96 Room Air 12/13/17 20:25 36.4 62 14 124/82 (96) 98 Room Air 12/13/17 16:30 Room Air 12/13/17 14:55 35.9 12/13/17 14:52 34.9 70 16 110/65 (80) 97 Room Air Laboratory Results 24 Hours: Test 12/13/17 09:04 12/14/17 05:22 White Blood Count 13.94 K/uL Red Blood Count 3.13 M/uL Hemoglobin 9.9 g/dL 9.5 g/dL Hematocrit 28.5 % 28.7 % Mean Corpuscular Volume 91.1 fL Mean Corpuscular Hemoglobin 31.6 pg Mean Corpuscular Hemoglobin Concent 34.7 g/dl Platelet Count 254 K/uL Mean Platelet Volume 9.2 fL Neutrophils (%) (Auto) 78.2 % Lymphocytes (%) (Auto) 9.6 % Monocytes (%) (Auto) 11.5 % Eosinophils (%) (Auto) 0.4 % Basophils (%) (Auto) 0.1 % Neutrophils # (Auto) 10.91 K/uL Lymphocytes # (Auto) 1.34 K/uL Monocytes # (Auto) 1.60 K/uL Eosinophils # (Auto) 0.05 K/uL Basophils # (Auto) 0.01 K/uL Assessment & Plan Assessment: 82 yo female stable POD #3 s/p left NISHANT, less confusion per NS, had negative head CT Plan: 1. Med management 2. DVT prophylaxis- ASA, SCDs 3. PT/OT 4. D/C planning- possible d/c to [facility] on Friday
[2017-12-14] MEDS: DOCUSATE SODIUM 100 MG CAP PO SCH ×2 (08:13→20:58)
[2017-12-14] MEDS: FERROUS GLUCONATE 324 MG TAB PO SCH ×3 (08:13→17:45)
[2017-12-14] MEDS: ATORVASTATIN 20 MG TAB PO SCH (08:13)
[2017-12-14] MEDS: ASPIRIN 81 MG ECTAB PO SCH ×2 (08:13→20:58)
[2017-12-14] MEDS: CeleBREX 200 MG CAP PO SCH ×2 (08:13→20:57)
[2017-12-14] MEDS: MULTIVITAMIN TAB PO SCH (08:14)
[2017-12-14] MEDS: CLORAZEPATE DIPOTASSIUM 3.75 MG TAB PO SCH ×3 (08:14→21:01)
[2017-12-14] MEDS: PANTOprazole SOD 40 MG TAB PO SCH (08:14)
[2017-12-14] MEDS ORDERED: BISACODYL 10 MG SUPP PR STA (08:16)
--- NOTE | 2017-12-14 08:20 | Hospitalist Progress Note ---
Hospitalist Progress Note Date of Service December 14, 2017. (Yomaira Quigley PA-C) Subjective Pt evaluation today including: conversation w/ patient, physical exam, chart review, lab review, review of studies Pain: None Voiding: incontinence The patient was seen and examined this morning. Pt is very sleepy during my exam. She does wake up and acknowledge I'm there but then quickly falls back asleep. She denies any acute pain, and is tired. Confusion status unable to be assessed currently. ROS: 6 point ROS unable to be obtained due to fatigue (Yomaira Quigley PA-C) Objective Vital Signs Date Time Temp Pulse Resp B/P (MAP) Pulse Ox O2 Delivery O2 Flow Rate FiO2 12/14/17 07:52 36.9 61 16 144/79 (100) 92 12/13/17 23:15 Room Air 12/13/17 22:50 36.3 64 18 123/72 (89) 96 Room Air 12/13/17 20:25 36.4 62 14 124/82 (96) 98 Room Air 12/13/17 16:30 Room Air 12/13/17 14:55 35.9 12/13/17 14:52 34.9 70 16 110/65 (80) 97 Room Air (Yomaira Quigley PA-C) Physical Exam Notes: General Appearance: WD/WN, no apparent distress Eyes: PERRL, EOMI ENT: hearing grossly normal, pharynx normal Neck: supple, no JVD Respiratory/Chest: no respiratory distress, no accessory muscle use, + pertinent finding (Faint crackles in the left base) Cardiovascular: regular rate, rhythm, + systolic murmur (III/ RUSB) Abdomen: normal bowel sounds, non tender, soft Extremities: non-tender, no pedal edema, no calf tenderness, + pertinent finding (L hip dressing c/d/i.) Neurologic/Psychiatric: alert, normal mood/affect, orientation unable to be assessed. Skin: normal color, warm/dry (Yomaira Quigley PA-C) Laboratory Results Last 24 Hours Test 12/13/17 09:04 12/13/17 21:30 12/14/17 05:22 White Blood Count 13.94 K/uL 7.79 K/uL Red Blood Count 3.13 M/uL 3.05 M/uL Hemoglobin 9.9 g/dL 9.5 g/dL Hematocrit 28.5 % 28.7 % Mean Corpuscular Volume 91.1 fL 94.1 fL Mean Corpuscular Hemoglobin 31.6 pg 31.1 pg Mean Corpuscular Hemoglobin Concent 34.7 g/dl 33.1 g/dl Platelet Count 254 K/uL 231 K/uL Mean Platelet Volume 9.2 fL 9.4 fL Neutrophils (%) (Auto) 78.2 % Lymphocytes (%) (Auto) 9.6 % Monocytes (%) (Auto) 11.5 % Eosinophils (%) (Auto) 0.4 % Basophils (%) (Auto) 0.1 % Neutrophils # (Auto) 10.91 K/uL Lymphocytes # (Auto) 1.34 K/uL Monocytes # (Auto) 1.60 K/uL Eosinophils # (Auto) 0.05 K/uL Basophils # (Auto) 0.01 K/uL RDW Standard Deviation 43.8 fL 46.3 fL RDW Coefficient of Variation 13.2 % 13.4 % Immature Granulocyte % (Auto) 0.2 % Immature Granulocyte # (Auto) 0.03 K/uL Sodium Level 139 mmol/L 141 mmol/L Potassium Level 3.7 mmol/L 4.2 mmol/L Chloride Level 106 mmol/L 111 mmol/L Carbon Dioxide Level 29 mmol/L 25 mmol/L Anion Gap 4.0 mmol/L 5.0 mmol/L Blood Urea Nitrogen 24 mg/dl 22 mg/dl Creatinine 1.13 mg/dl 1.07 mg/dl Est Creatinine Clear Calc Drug Dose 35.3 ml/min 37.3 ml/min Estimated GFR () 52.4 56.0 Estimated GFR (Non- 45.2 48.3 BUN/Creatinine Ratio 21.4 21.0 Random Glucose 100 mg/dl 108 mg/dl Calcium Level 8.3 mg/dl 8.1 mg/dl Urine Color YELLOW Urine Appearance CLEAR Urine pH 5.5 Urine Specific [place] 1.014 Urine Protein NEG Urine Glucose (UA) NEG Urine Ketones NEG Urine Occult Blood NEG Urine Nitrite NEG Urine Bilirubin NEG Urine Urobilinogen NEG Urine Leukocyte Esterase NEG Magnesium Level 2.3 mg/dl (Yomaira Quigley, PADimitriC) Assessment and Plan Ms. Keith is an 82 year old woman here for elective left NISHANT 12/[address] Jiang. Increased confusion/agitation - Cont seroquel 25 mg HS as this appears to have helped with confusion/sleep,- she is very tired today, but this may be due to neuro checks q15min. Will dc those at this time. - Behavior was confirmed with daughter via bedside conversation yesterday. Will assess later today to see if improved confusion status when more awake. - reorient as possible - improved behavior with family present - CT overnight completed with possible RUE and RLE weakness but was negative for intracranial abnormality, shows R CORN DETASSELER shunt, and atrophy/chronic microvascular ischemic changes. - Follow urine culture with low temp to r/o infection - Ordered dulcolax suppository this morning with successful BM. Left NISHANT 12/11 - monitor for acute hemorrhage, cbc am, blood drainage from hemovac - Bowel regimen, DVT prophylaxis, pain control, PT/OT per primary team - Cont slow IVFs for now with decreased oral intake History of multiple falls, brain shunt - maintain fall precautions - continue clorazepate Hx TIA, HLD - continue home atorvastatin 20 mg, ASA GERD - continue protonix Hypothyroidism - continue levothyroxine Medicine will follow along due to increased confusion as above. (Yomaira Quigley PA-C) Attending Attestation - Pt seen/examined, chart reviewed, care plan d/w CHRISSY Quigley. I agree w/ the garcia components of her documentation. Staff report patient slept all night and also most of this AM. Had success with dulcolax suppos - staff report very large BM with this. During my visit she was awake and alert; mildly confused, but remembered she had had hip surgery. She reported that she was hungry. VSS, no fever gen - looks much better today mouth - MMM neck - no JVD heart - 2/6 IESHA LSB, RRR lungs - CTA b/l abd - soft, NT ext - left hip dressings intact neuro - no facial droop; speech clear/fluent; no aphasia; strength 5/5 x 4 exts ; DTRs symmetric b/l upper & lower exts A/P: 1. encephalopathy - likely multiple causes including anesthesia, hospital psychosis, pain meds, dehydration, constipation. No evidence of UTI. Markedly improved with seroquel last pm and finally getting rest. Continue to stimulate during the day to remain awake and therefore sleep better at night. Avoid benzos (ativan, etc). 2. constipation - improved; now cont with bowel regimen to maintain BMs. 3. CKD stage 3 - BMP stable toda. 4. NPH s/p CORN DETASSELER shunt - CT head done last pm - no stroke; shunt in place. No evidence on exam today of stroke. 5. underlying mild cognitive impairment vs dementia (per ) 6. FEN - cont IVF until she is eating/drinking consistently. pleased w/ her progress overnight Paul Robles MD (Paul Robles MD)
[2017-12-14] MEDS ORDERED: NURSING DECISION MEDICATION ORDER SCH (10:30)
[2017-12-14] MEDS: MICONAZOLE NITRATE POWDER 43 GM EXT SCH ×2 (10:43→20:58)
[2017-12-14 14:51] VITALS: BP 134/64; PULSE 78; TEMP 36.4; O2SAT 97
[2017-12-14] MEDS: QUETIAPINE FUMARATE 25 MG TAB PO SCH (20:58)
[2017-12-14 23:00] VITALS: BP 123/70; PULSE 76; TEMP 36.7; O2SAT 95
[2017-12-15] MEDS: LEVOTHYROXINE 88 MCG TAB PO SCH (05:42)
[2017-12-15 05:59] LABS: CALCIUM 7.9 mg/dl (8.5-10.1); CREATININE 1.09 mg/dl (0.60-1.20); POTASSIUM 4.5 mmol/L (3.5-5.1)
[2017-12-15 07:03] VITALS: BP 144/77; PULSE 60; TEMP 36.7
[2017-12-15] MEDS: DOCUSATE SODIUM 100 MG CAP PO SCH (08:27)
[2017-12-15] MEDS: CeleBREX 200 MG CAP PO SCH (08:27)
--- NOTE | 2017-12-15 08:27 | Orthopedic Progress Note ---
Orthopedic Progress Note Date of Service December 15, 2017. Subjective Post OP Day: 4 Reports: feeling well, Denies: chest pain, SOB, nausea / vomiting, light headedness, calf pain Additional Notes: NO NOTICEABLE CONFUSION THIS AM. Objective calves soft nontender, N/V intact, hip located, capillary refill less than 2 sec., incision C/D/I (ZIPLINE), A&O x3, toes mobile Date Time Temp Pulse Resp B/P (MAP) Pulse Ox O2 Delivery O2 Flow Rate FiO2 12/15/17 07:15 Room Air 12/15/17 07:03 36.7 60 16 144/77 (99) 12/14/17 23:35 Room Air 12/14/17 23:00 36.7 76 15 123/70 (87) 95 Room Air 12/14/17 15:44 Room Air 12/14/17 14:51 36.4 78 16 134/64 (87) 97 Room Air 12/14/17 09:46 Room Air Assessment & Plan Assessment: 82 yo female stable POD #4 s/p left NISHANT, less confusion per NS, had negative head CT Plan: 1. Med management- TYLENOL, CELEBREX. NO NARCOTICS DUE TO MENTAL STATUS CHANGES. 2. DVT prophylaxis- ASA, SCDs 3. PT/OT 4. D/C planning- possible d/c to [facility] on Friday
[2017-12-15] MEDS: ACETAMINOPHEN 500 MG TAB PO SCH (08:28)
[2017-12-15] MEDS: ASPIRIN 81 MG ECTAB PO SCH (08:28)
[2017-12-15] MEDS: MICONAZOLE NITRATE POWDER 43 GM EXT SCH (08:29)
[2017-12-15] MEDS: PANTOprazole SOD 40 MG TAB PO SCH (08:29)
[2017-12-15] MEDS: ATORVASTATIN 20 MG TAB PO SCH (08:29)
[2017-12-15] MEDS: MULTIVITAMIN TAB PO SCH (08:29)
[2017-12-15] MEDS: FERROUS GLUCONATE 324 MG TAB PO SCH ×2 (08:29→11:47)
[2017-12-15] MEDS ORDERED: CLB200 PO (08:32)
[2017-12-15] MEDS ORDERED: ACET-24 PO (08:32)
[2017-12-15] MEDS ORDERED: ASPI81TA28 PO (08:32)
[2017-12-15] MEDS: CLORAZEPATE DIPOTASSIUM 3.75 MG TAB PO SCH (08:33)
--- NOTE | 2017-12-15 08:34 | Discharge Instructions ---
Discharge Instructions Date of Service December 15, 2017. Admission Reason for Admission: Left Hip Osteoarthritis Discharge Discharge Diagnosis / Problem: SP LEFT NISHANT Discharge Goals Goal(s): Decrease discomfort, Improve function, Increase independence Activity Recommendations Activity Level: Assistance Required Therapies: Physical Therapy, Weight Bearing Status (WBAT WITH WALKER), Occupational Therapy . Additional Information Patient informed of condition: Yes Advance Directives: Yes DNR: No Level of Care: Acute Rehab Communicable Disease: No Prognosis: Stable Instructions / Follow-Up Instructions / Follow-Up ACTIVITY RECOMMENDATIONS: SELF CARE INSTRUCTIONS AFTER TOTAL HIP REPLACEMENT Until the incision and soft tissues around your hip have healed, there is a possibility that the hip prosthesis could dislocate. A. Observe the following precautions to prevent dislocation: 1. Don't bend your hip greater than 90 degrees. 2. Avoid crossing your legs or ankles while standing or lying. 3. Sit with your feet placed 6 inches apart. 4. When sitting, keep your knees below your hips. Sit on a firm surface, avoid deep, soft chairs and couches. Use an elevated toilet seat in the bathroom. 5. Don't bend over at the waist. Use a long handled shoehorn and a sock aid to help you put on your shoes and socks. A wood carver can help you picking tech objects that are too high or too low to reach. 6. Keep car riding to a minimum for at least one month after surgery. B. Your balance may be shaky for a while. Use crutches or a walker until directed by your doctor. C. Use hand rails when walking on stairs. D. Wear low heeled shoes with non-slip soles. E. Be sure that your floors are free of things that could trip you - throw rugs , electrical cords, small objects. Avoid wet and waxed floors, especially with crutches and canes. F. Try to walk several times a day with rest periods between. G. Continue with all the exercises taught to you in the hospital. Again, make walking a part of your daily routine. SPECIAL CARE INSTRUCTIONS: VERY IMPORTANT TO READ AND REVIEW A. You may still be at risk for phlebitis and blood clots. 1. Wear surgical stockings (AVIVA hose) for 2 weeks after surgery to improve circulation and reduce swelling. 2. Take Aspirin 81mg twice daily for 4 weeks or as directed by your doctor. This is your blood thinner. 3. High risk patients may be prescribed a stronger blood thinner if necessary. 4. If you are on Coumadin normally, your family doctor/sales solutions associate should monitor your blood work. Expect a phone call the day of or the day after bloodwork is drawn to adjust your dosage. B. You must take antibiotics before having dental work, bladder, bowel and other surgery. Your doctor will provide you with a permanent card to carry describing precautions. C. Call [facility] if you have a fever, redness or swelling around the incision, cloudy drainage from incision, or sudden increase in pain in your hip, not relieved by your regular pain medication. D. Please call the office at if you have any concerns or questions about your operation or recovery. * YOU MAY SHOWER, NO TUB BATHS UNTIL CLEARED BY YOUR DOCTOR. * WEAR AVIVA HOSE 20 HOURS PER DAY FOR 2 WEEKS. * YOU SHOULD USE A WALKER OR CRUTCHES FOR 2-4 WEEKS. THIS WILL HELP PREVENT STRAIN ON YOUR HIP MUSCLE AND ALLOW IT TO HEAL PROPERLY. YOU MAY WEAN TO A CANE TOLERATED. * MOST PATIENTS WILL HAVE HOME NURSING FOR THERAPY. IF YOU DECIDE TO DO OUTPATIENT PHYSICAL THERAPY, PLEASE SCHEDULE THIS 3 TIMES PER WEEK. Zip Skin Closure You have a Zipline Closure System. As noted below, this keeps your incision closed. Change the dressing daily. Keep the wound covered with a dressing as it has the potential to snag on your clothing. The Zipline will remain on for a total of 2 weeks. Do not remove it! You will be given instructions by nursing staff at the time of discharge to care for your Zip Closure System. This devices uses plastic straps to keep your incision closed and protected throughout your recovery. If you have any questions please refer to these instructions first. FOLLOW UP VISIT: If appointment is not already scheduled: Please call [facility] to make a follow-up appointment for 2 weeks after your surgery at . Current Hospital Diet Patient's current hospital diet: Regular Diet Discharge Diet Recommended Diet: Regular Diet Procedures Procedures Performed: LTHA Pending Studies Studies pending at discharge: no Medical Emergencies . Who to Call and When: Medical Emergencies: If at any time you feel your situation is an emergency, please call 911 immediately. . Non-Emergent Contact Non-Emergency issues call your: Primary Care Provider, Surgeon . . "Provider Documentation" section prepared by Natalia Núñez. . Core Measure Problem Core Measures: None [place] Drug Monitoring Program Search Results: patient reviewed within database, no issues identified
[2017-12-15 08:55] VITALS: BP 144/77; PULSE 60; TEMP 36.7; O2SAT 95
[2017-12-15] MEDS ORDERED: SRQ25 PO (09:43)
--- NOTE | 2017-12-15 09:48 | Discharge Instructions ---
Discharge Instructions Date of Service December 15, 2017. Admission Reason for Admission: Left Hip Osteoarthritis Discharge Discharge Diagnosis / Problem: Left hip osteoarthritis, delirium Discharge Goals Goal(s): Decrease discomfort, Improve function, Diagnostic testing, Therapeutic intervention Activity Recommendations Activity Limitations: per Instructions/Follow-up section (per orthopedics instructions) . Instructions / Follow-Up Instructions / Follow-Up Hospital medicine recommendations: *Patient developed delirium/confusion postop which was likely multifactorial due to anesthesia, hospital delirium, pain meds, dehydration, constipation. Pt improved with Seroquel and rest. *Patient may take Seroquel 25 mg PO at bedtime as needed for insomnia/delirium. Patient does NOT require this at baseline. *Continue to stimulate during the day to remain awake and therefore sleep better at night. Avoid benzodiazepines (Ativan, etc). Mrs. Keith should follow-up with Khoa Garcia, Neurosurgery PA, at the [facility] at [facility] in [place] Phone #: [phone] [facility] performed a CT head during her stay. This CT is on a CD-ROM. Please have Mrs. Keith take that CT head to the appointment in [place]. Ideally Mrs. Keith should have this appointment with the [facility] within the next 2 weeks Current Hospital Diet Patient's current hospital diet: Regular Diet Discharge Diet Recommended Diet: Regular Diet Procedures Procedures Performed: LTHA Pending Studies Studies pending at discharge: no Medical Emergencies . Who to Call and When: Medical Emergencies: If at any time you feel your situation is an emergency, please call 911 immediately. . Non-Emergent Contact Non-Emergency issues call your: Primary Care Provider, Surgeon Call Non-Emergent contact if: you have a fever, your pain is not controlled, your pain is worsening, your pain is unusual for you, your pain is concerning you, wound has increased drainage, wound has increased redness, wound has increased pain, you have any medication questions . . "Provider Documentation" section prepared by Nina Reyes. .
--- NOTE | 2017-12-15 10:01 | Hospitalist Progress Note ---
Hospitalist Progress Note Date of Service December 15, 2017. (Nina Reyes ., NICKOLASC) Subjective Pt evaluation today including: conversation w/ patient, physical exam, chart review, lab review, review of inpatient medication list Pain: None PO Intake: Tolerating PO diet Voiding: no voiding problems Patient reports feeling well today and is alert and oriented. She does note that she did not sleep much last night but is no longer confused. She states she had some trouble urinating previously but voided on her own this morning without issue. She is passing gas and moving her bowels this morning. She is tolerating a PO diet well. The patient is going to [facility] this afternoon for acute rehab. The patient denies fevers, chills, sweats, chest pain, palpitations, claudication, cough, wheezing, shortness of breath, nausea, vomiting, abdominal pain, dysuria, hematuria, urinary retention, paralysis, weakness, numbness and tingling. Additional Comments: See HPI for pertinent positives and negatives. All other systems reviewed and negative. (Nina Reyes ., CHRISSY-C) Objective Vital Signs Date Time Temp Pulse Resp B/P (MAP) Pulse Ox O2 Delivery O2 Flow Rate FiO2 12/15/17 08:55 36.7 60 16 95 Room Air 12/15/17 07:15 Room Air 12/15/17 07:03 36.7 60 16 144/77 (99) 12/14/17 23:35 Room Air 12/14/17 23:00 36.7 76 15 123/70 (87) 95 Room Air 12/14/17 15:44 Room Air 12/14/17 14:51 36.4 78 16 134/64 (87) 97 Room Air (Nina Reyes, CHRISSY-C) Physical Exam Notes: General appearance: Well-developed, well-nourished, no apparent distress Head: Normocephalic, atraumatic Eyes: Normal inspection, PERRL, EOMI ENT: Normal ENT inspection, hearing grossly normal, pharynx normal Neck: Supple, no JVD, trachea midline Respiratory/Chest: Lungs clear to auscultation, normal breath sounds, no respiratory distress Cardiovascular: +Systolic murmur. Regular rate & rhythm, no gallop Abdomen/GI: Normal bowel sounds, non-tender, soft Extremities/Musculoskeletal: +Left hip dressing c/d/i. Normal inspection, no calf tenderness, no pedal edema Neurological/Psych: Alert, normal mood/affect, oriented x 3 Skin: Normal color, warm/dry, no rash (Nina Reyes PA-C) Laboratory Results Last 24 Hours Test 12/15/17 05:21 Sodium Level 141 mmol/L Potassium Level 4.5 mmol/L Chloride Level 110 mmol/L Carbon Dioxide Level 25 mmol/L Anion Gap 6.0 mmol/L Blood Urea Nitrogen 21 mg/dl Creatinine 1.09 mg/dl Est Creatinine Clear Calc Drug Dose 36.6 ml/min Estimated GFR () 54.7 Estimated GFR (Non- 47.2 BUN/Creatinine Ratio 18.9 Random Glucose 90 mg/dl Calcium Level 7.9 mg/dl (Nina Reyes PA-C) Assessment and Plan 82 y/o female with a history of HTN, HLD, h/o TIA, NPH s/p GROUP MANAGER shunt, hypothyroidism, anxiety/depression, CKD stage III, OA and GERD who presents s/p left NISHANT with Dr. Jiang on 12/11 for medical management. Increased confusion/agitation--resolving - Pt now alert and oriented x 3 this morning despite poor sleep last night - Will continue Seroquel 25 mg PO hs prn insomnia/delirium at discharge to [facility]. Recommend continuing stimulation during the day for better sleep at night and avoiding benzos for agitation/anxiety is this may cause psychosis - Head CT shows no acute intracranial abnormalities - UA completely negative, no s/s infection - Bowels now moving s/p Dulcolax - Confusion could have been secondary to many factors including anesthesia, hospital related delirium, pain meds, steroid psychosis, constipation, etc. S/p left NISHANT--POD #4 - Hgb has remained stable postop - Pain management, DVT prophylaxis, and PT/OT as per primary team - Pt to [facility] for rehab NPH s/p GROUP MANAGER shunt--stable - Maintain fall precautions - Continue clorazepate 7.5 mg PO TID Hx TIA, HLD, HTN--stable - Continue home atorvastatin 20 mg, ASA GERD - Continue protonix Hypothyroidism - Continue levothyroxine 88 mcg PO qd Pt. is stable from a medical standpoint, we will sign off. Clear for discharge as per primary team. (Reyes, Nina ., PA-C) Attending Attestation - Pt seen/examined, chart reviewed, care plan d/w CHRISSY Reyes. I agree w/ the garcia components of her documentation except patient still w/ mild confusion/delirium albeit it is better than earlier in her stay. Pt awake, alert, but mildly confused during my visit. She recalled that she had had left hip surgery, knew that she was in the hospital, knew it was 2018, but had some troubles with the day and date. She recognized that she was having some difficulty w/ the latter. Staff report no issues. Eating fine. VSS, no fever gen - awake, alert, looks good mouth - MMM neck - no JVD heart - 2/6 systolic murmur RUSB lungs - CTA b/l, scant dry rales bases abd - soft, NT ext - no edema neuro - strength 5/5 x 4 exts A/P: 1. encephalopathy - likely multiple causes including anesthesia, hospital psychosis, pain meds, dehydration, constipation. No evidence of infectious etiology. CT head was stable with shunt in place. Suspect her delirium will take a few more days to fully resolve as her family reported baseline cognitive dysfunction. I would continue w/ the seroquel at [facility] to help promote sleep and to try and prevent psychosis. 2. constipation - improved; now cont with bowel regimen to maintain BMs. 3. CKD stage 3 - BMP stable. 4. NPH s/p GROUP MANAGER shunt - records were reviewed from the Hydrocephalus Center at [facility] in [place]. She was seen by them in November 2017 in preparation for her left hip replacement. Records indicate they wanted her to be re-evaluated in the Hydrocephalus clinic shortly after her discharge from this hospitalization. I have placed her CT head on CD-Rom to take w/ her to [facility] and on the d/ c paperwork I have asked that she f/u with the Neurosurgery/hydrocephalus clinic within 2 weeks. 5. underlying mild cognitive impairment vs dementia 6. FEN - eating well. Lytes stable. from medical standpoint she is stable and can d/c to [facility] for rehab Paul Robles MD (Paul Robles MD)
== END 2017-12-15 12:00 | DRG 469 ==
LOC: C.ACU 08:38 → C.3E 10:30 → ENRESERV 13:24 → C.3E 12-14 12:58
PROC: 0SRB01Z Replacement of Left Hip Joint with Metal Synthetic Substitute, Open Approach (ICD-10-PCS; principal; 2017-12-11 11:30)
DX: M16.12 Unilateral primary osteoarthritis, left hip (principal); G93.40 Encephalopathy, unspecified; G91.2 (Idiopathic) normal pressure hydrocephalus; F05 Delirium due to known physiological condition; Z96.652 Presence of left artificial knee joint; Z98.2 Presence of cerebrospinal fluid drainage device; K21.9 Gastro-esophageal reflux disease without esophagitis; F41.8 Other specified anxiety disorders; N18.3 Chronic kidney disease, stage 3 (moderate); E78.5 Hyperlipidemia, unspecified; Z85.828 Personal history of other malignant neoplasm of skin; E03.9 Hypothyroidism, unspecified; K59.00 Constipation, unspecified